=== PATIENT | female | born 1950 | race Two or more races ===

== ENCOUNTER 2018-01-11 09:33 | Emergency (ER) | payer OTHER, MEDICAID ==
[~2018-01-11] VITALS: Ht 152.4 cm; Wt 59.9 kg
[2018-01-11 10:39] LABS: Basophils # (auto) 0 uL; Basophils % (auto) 0.5 % (0.0-2.0); Eosinophils # (auto) 0.8 uL; Hematocrit 42.4 % (36.0-46.0); Hemoglobin 13.9 g/dL (12.2-16.2); Lymphocytes # (auto) 1.6 uL; Lymphocytes % (auto) 20.7 % (10.0-50.0); Mean Corpuscular Hemoglobin 27.1 pg (28.0-32.0); Mean Corpuscular Hgb Conc. 32.7 g/dL (32.0-36.0); Monocytes # (auto) 0.4 uL; Monocytes % (auto) 5.4 % (0.0-12.0); Neutrophils % (auto) 63.4 % (37.0-80.0); Nucleated Red Blood Cells % 0.1 %; Platelet Count (auto) 235 10^3/uL (140-450); Red Blood Cells 5.11 10^6/uL (4.0-5.20); Red Cell Distribution Width 14.7 % (11.8-14.3); White Blood Cell 7.9 10^3/uL (4.4-10.8)
[2018-01-11 11:01] LABS: Albumin 3.1 g/dL (3.4-5.0); BUN/Creatinine Ratio 18.9; Bilirubin, Total 0.6 mg/dL (0.2-1.0); Calcium 8.1 mg/dL (8.5-10.1); Potassium 4.1 mmol/L (3.5-5.1); Total Protein 7.4 g/dL (6.4-8.2)
[2018-01-11 15:39] VITALS: BP 141/69
== END 2018-01-11 15:42 | disposition home or self-care (01) ==
LOC: ER 09:33
DX: D35.2 Benign neoplasm of pituitary gland (principal); R22.0 Localized swelling, mass and lump, head; I10 Essential (primary) hypertension; E07.89 Other specified disorders of thyroid; K21.9 Gastro-esophageal reflux disease without esophagitis; Z90.89 Acquired absence of other organs; Z90.49 Acquired absence of other specified parts of digestive tract; Z90.710 Acquired absence of both cervix and uterus
CPT/HCPCS: 36415; 70450; 70480; 70486; 80053; 82962; 85025

== ENCOUNTER 2025-09-08 09:27 | Inpatient (IN) | payer OTHER, MEDICAID ==
[~2025-09-08] VITALS: Ht 152.4 cm; Wt 62.1 kg
--- NOTE | 2025-09-08 10:16 | ED.PDOC ---
GI ASSESSMENT HPI Comments This is a 75 year old female presenting to the ED with chief complaint of abdominal pain. Patient reports that she has been experiencing RUQ abdominal pain for the past 2 weeks. Patient relays that her PCP had ordered her an endoscopy and colonoscopy, however, it has yet to be scheduled. Patient denies any N/V/D, fever, chills, dysuria, flank pain, chest pain, or SOB. Chief Complaint: Abdominal Pain Time Seen by MD: 10:15 Primary Care Provider: sebastian Alfonso Reviewed Notes: Nurses Notes, Medications, Allergies Allergies: Coded Allergies: NO KNOWN ALLERGIES (Unverified , 01/11/18) Information Source: Patient Mode of Arrival: Ambulatory Timing: Weeks Duration: Since onset Prehospital treatment: None Quality: Aching Vomitus: None Stool: Normal Severity: Moderate Recent: None Recent Hx of: None Pain Location: RUQ Modifying Factors: Nothing Associated sign and symptoms: Abdominal Pain Past Medical History PAST MEDICAL HISTORY: Depression, GERD, HTN, Seizures, Thyroid Surgical History: Appendectomy, Cholecystectomy, Hysterectomy, Thyroidectomy 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 Family History Family History: Reviewed,noncontributory to illness, No family hx of HTN Social History Smoker: Non-Smoker Alcohol: Denies ETOH Use Drugs: Denies Drug Use Lives In: Home Constitutional: denies: chills, diaphoresis, fatigue, fever, malaise, sweats, w eakness, others EENTM: denies: blurred vision, double vision, ear bleeding, ear discharge, ear drainage, ear pain, ear ringing, eye pain, eye redness, hearing loss, mouth pain, mouth swelling, nasal discharge, nose bleeding, nose congestion, nose pain, photophobia, tearing, throat pain, throat swelling, voice changes, others Respiratory: denies: cough, hemoptysis, orthopnea, SOB at rest, shortness of breath, SOB with excertion, stridor, wheezing, others Cardiovascular: denies: chest pain, dizzy spells, diaphoresis, Dyspnea on exertion, edema, irregular heart beat, left arm pain, lightheadedness, palpitations, PND, syncope, others Gastrointestinal: reports: abdominal pain; denies: abdomen distended, blood streaked bowels, constipated, diarrhea, dysphagia, difficulty swallowing, hematemesis, melena, nausea, poor appetite, poor fluid intake, rectal bleeding, rectal pain, vomiting, others Genitourinary: denies: abnormal vagina bleeding, burning, dyspareunia, dysuria, flank pain, frequency, hematuria, incontinence, pain, , vagina discharge, urgency, others Neurological: denies: dizziness, fainting, headache, left sided numbness, left sided weakness, numbness, paresthesia, pre-existing deficit, right sided numbness, right sided weakness, seizure, speech problems, tingling, tremors, weakness, others Musculoskeletal: denies: back pain, gout, joint pain, joint swelling, muscle pain, muscle stiffness, neck pain, others Integumetry: denies: bruises, change in color, change in hair/nails, dryness, laceration, lesions, lumps, rash, wounds, others Allergic/Immunocompromised: denies: Difficulty Healing, Frequent Infections, Hives, Itching, others Hematologic/Lymphatic: denies: anemia, blood clots, easy bleeding, easy bruising, swollen glands, others Endocrine: denies: excessive hunger, excessive sweating, excessive thirst, excessive urination, flushing, intolerance to cold, intolerance to heat, unexplained weight gain, unexplained weight loss, others Psychiatric: denies: anxiety, bipolar disorder, depression, hopeless, panic disorder, schizophrenia, sleepless, suicidal, others All Other Systems: Reviewed and Negative Physical Exam General Appearance: Moderate Distress, Normal HEENT: Normal ENT Inspection, Pharynx Normal, TMs Normal Neck: Full Range of Motion, Non-Tender, Normal, Normal Inspection Respiratory: Chest Non-Tender, Lungs Clear, No Accessory Muscle Use, No Respir atory Distress, Normal Breath Sounds Cardiovascular: No Edema, No JVD, No Murmur, No Gallop, Normal Peripheral Pulses, Regular Rate/Rhythm Breast Exam: Deferred Gastrointestinal: No Organomegaly, Non Tender, No Pulsatile Mass, Normal Bowel Sounds, Soft Genitalia: Deferred Pelvic: Deferred Rectal: Deferred Extremities: No calf tenderness, Normal capillary refill, Normal inspection, Normal range of motion, Non-tender, No pedal edema Musculoskeletal : Apperance: Normal Neurologic: Alert, safety companion II-XII nml as Tested, No Motor Deficits, Normal Affect, Normal Mood, No Sensory Deficits Cerebellar Function: Normal Reflexes: Normal Skin: Dry, Normal Color, Warm Peripheral Pulses: 3+ Radial (R), 3+ Radial (L) Lymphatic: No Adenopathy Was a procedure done? Was a procedure done?: No GI differential Dx Differential Diagnosis: Constipation, Diverticular disease, Esophagitis, Gastritis/PUD, Gastroenteritis X-Ray, Labs, Meds, VS Vital Signs Date Time Temp Pulse Resp B/P (MAP) Pulse Ox O2 Delivery O2 Flow Rate FiO2 09/08/25 09:29 98.5 89 18 159/87 95 98.5 Lab Test 09/08/25 10:29 09/08/25 10:13 Range/Units Urine Color Yellow Yellow Urine Clarity Turbid H Clear Urine pH 5.5 5.0-9.0 Urine Specific [place] 1.027 1.001-1.035 Urine Protein Negative Negative Urine Ketones Negative Negative Urine Blood Negative Negative /uL Urine Nitrite Negative Negative Urine Bilirubin Negative Negative Urine Urobilinogen Normal Negative mg/dL Urine Leukocyte Esterase 1+ Negative /uL Urine RBC <1 0 - 4 /hpf Urine Microscopic WBC 1 0-5 /HPF Urine Squamous Epithelial Cells Few <5 /hpf Urine Calcium Oxalate Crystals Many None Seen Urine Bacteria Few H None Seen /hpf Urine Glucose Normal Normal mg/dL White Blood Count 8.0 4.4-10.8 10^3/uL Red Blood Count 4.90 4.0-5.20 10^6/uL Hemoglobin 14.3 12.2-16.2 g/dL Hematocrit 43.1 36.0-46.0 % Mean Corpuscular Volume 87.9 80.0-100.0 fL Mean Corpuscular Hemoglobin 29.1 28.0-32.0 pg Mean Corpuscular Hemoglobin Concent 33.1 32.0-36.0 g/dL Red Cell Distribution Width 15.3 H 11.8-14.3 % Platelet Count 202 140-450 10^3/uL Mean Platelet Volume 9.1 6.9-10.8 fL Neutrophils (%) (Auto) 64.2 37.0-80.0 % Lymphocytes (%) (Auto) 20.5 10.0-50.0 % Monocytes (%) (Auto) 6.6 0.0-12.0 % Eosinophils (%) (Auto) 8.6 H 0.0-7.0 % Basophils (%) (Auto) 0.1 0.0-2.0 % Neutrophils # (Auto) 5.2 1.6-8.6 10 ^3/uL Lymphocytes # (Auto) 1.6 0.4-5.4 10 ^3/uL Monocytes # (Auto) 0.5 0-1.3 10 ^3/uL Eosinophils # (Auto) 0.7 0-0.8 10 ^3/uL Basophils # (Auto) 0 0-0.2 10 ^3/uL Nucleated Red Blood Cells 0.0 % Sodium Level 146 H 136-145 mmol/L Potassium Level 3.8 3.5-5.1 mmol/L Chloride Level 110 H 98-107 mmol/L Carbon Dioxide Level 27 20-31 mmol/L Anion Gap 9 5-15 Blood Urea Nitrogen 17 9-23 mg/dL Creatinine 0.80 0.550-1.02 mg/dL Glomerular Filtration Rate Calc 76 >90 mL/min BUN/Creatinine Ratio 21.3 H 10.0-20.0 Serum Glucose 89 74-106 mg/dL Calcium Level 9.6 8.7-10.4 mg/dL Patient alert. Came in because of abdominal pain. Sodium is high. Vitals stable. Had gallbladder surgery. WBC within normal limits. UA shows UTI. Was given Rocephin. Continues to have abdominal pain. Explained to the patient. Continue to monitor. Time of 1ST Reevaluation: 11:15 Reevaluation 1ST: Unchanged Patient Education/Counseling: Diagnosis, Treatment Family Education/Counseling: No Family Present SEPSIS Sepsis Screen Date sepsis recognized/suspect: Sep 08, 2025 Time Sepsis recognized/suspect: 928 Recent Procedure: No On Antibiotic Therapy: No Respiratory Rate >20: No Heart Rate >90: No Temp<36 C (96.8 F) or >38.3 C: No SBP <90 or MAP <65 mmHG: No New Acute Mental Status Change: No Is the patient on CPAP, BIPAP,: No Physician Orders Ct Ab Pel Wo Con-No Oral Or Iv (09/08/25 11:00) Vital Signs Date Time Temp Pulse Resp B/P (MAP) Pulse Ox O2 Delivery O2 Flow Rate FiO2 09/08/25 09:29 98.5 89 18 159/87 95 98.5 Laboratory Tests Test 09/08/25 10:13 White Blood Count 8.0 10^3/uL (4.4-10.8) Departure 1 Departure Time of Disposition: 11:39 Impression: Primary Impression: Acute abdominal pain Additional Impressions: Hypernatremia Urinary tract infection Qualified Codes: N30.00 - Acute cystitis without hematuria Disposition: ADMITTED INPATIENT Admit to: Med Surg Condition: Guarded Critical Care Note Critical Care Time?: No Stability Stability form required: No Heart Score Heart Score: Heart Score Response (Comments) Value History N/A 0 EKG N/A 0 Age N/A 0 Risk Factors N/A 0 Troponin N/A 0 Total 0 I personally scribed for LEONOR MENDOZA MD ([email or web address]) on 09/08/25 at 10:16. Electronically submitted by Wilman Torrez ([email or web address]). LEONOR MENDOZA MD Sep 08, 2025 10:16
[2025-09-08 11:13] LABS: Hematocrit 43.1 % (36.0-46.0); Hemoglobin 14.3 g/dL (12.2-16.2); Mean Corpuscular Hemoglobin 29.1 pg (28.0-32.0); Mean Corpuscular Volume 87.9 fL (80.0-100.0); Nucleated Red Blood Cells % 0.0 %
[2025-09-08 11:24] LABS: Chloride 110 mmol/L (98-107); Potassium 3.8 mmol/L (3.5-5.1); Sodium 146 mmol/L (136-145)
[2025-09-08 11:25] LABS: Urine Protein, UAD Negative (Negative)
[2025-09-08 11:25] LABS: Anion Gap 9 (5-15); Calcium 9.6 mg/dL (8.7-10.4); Carbon Dioxide 27 mmol/L (20-31)
[2025-09-08 11:30] LABS: BUN/Creatinine Ratio 21.3 (10.0-20.0); Blood Urea Nitrogen 17 mg/dL (9-23); Glucose 89 mg/dL (74-106)
--- NOTE | 2025-09-08 11:53 | DVH ---
Exam: CT CT AB PEL WO CON-NO ORAL OR IV History: diffusepain Comparison Study: None Technique: Multidetector spiral CT of the abdomen was performed from lung bases to pubic symphysis. I maging was performed without IV contrast. Axial, coronal and sagittal multiplanar reformats were obta ined from the axial data set by the technologist. Radiation Dose : 1. Abdomen/Pelvis: CTDIvol 6.48 mGy, DLP 290.66 mGy*cm. Findings: Evaluation of solid organs is limited due to lack of intravenous contrast use. Lung Bases: No acute or significant lung base finding. Cardiomegaly. No pleural or pericardial effusi on. Liver: The liver is normal in size. No focal lesions. Gallbladder and Biliary Tree: Post cholecystectomy. Spleen: Unremarkable Pancreas: The pancreas is grossly normal in appearance. Adrenal Glands: Unremarkable Kidneys: Kidneys are grossly normal without calculi or hydronephrosis. Bladder: Grossly unremarkable for degree of distention. Bowel: Mild wall thickening of the gastric antrum. Moderate bowel wall thickening of the ascending co raudel. Moderate to large volume diffuse colonic stool. Diverticulosis. The small bowel is normal in yasmine iber and distribution. The appendix is not visualized; however, no secondary findings of acute append icitis identified. Ascites: Absent Lymphadenopathy: No mesenteric, retroperitoneal or periportal lymphadenopathy. Abdominal Wall and Mesentery: Unremarkable. Vasculature: Vascular calcifications of the aorta. Evaluation of abdominal and pelvic vessels is limi diana due to lack of intravenous contrast. Pelvic Organs: Hysterectomy. Musculoskeletal: Multilevel degenerative changes of the spine. No aggressive focal bony lesions, acut e fractures or dislocation. IMPRESSION: Mild wall thickening of the gastric antrum and moderate bowel wall thickening of the ascending colon. Findings may be due to underdistention versus gastritis and colitis respectively. Moderate to large volume diffuse colonic stool. Diverticulosis. Radiation optimization: All CT scans at this facility use at least one of these dose optimization chanell hniques: automated exposure control mA and/or kV adjustment per patient size (includes targeted exam s where dose is matched to clinical indication) or iterative reconstruction.
[2025-09-08 13:20] VITALS: PULSE 56; RESP 19; O2SAT 99
[2025-09-08] MEDS: SODIUM CHLORIDE 0.9% 1,000 ML IV ONE (14:17)
[2025-09-08] MEDS ORDERED: HYDROcodone-ACET 5/325MG TAB PO PRN (14:30)
--- NOTE | 2025-09-08 15:30 | DVHHP2 ---
History of Present Illness Reason for Visit: Abdominal pain History of Present Illness 75-year-old female presents for evaluation of abdominal pain. Patient reports a two week history of intermittent cramping/sharp pain that starts at the Center for abdomen radiates to her right upper quadrant and epigastric region. She reports episodes of nausea. She states over the past two days the pain has become more constant so she presented for further evaluation. No fever or chills. No diarrhea. Past Medical History Hypertension, seizures, thyroid, GERD Past Surgical History Appendectomy, cholecystectomy, hysterectomy, thyroidectomy Family History Noncontributory Smoke: No ALCOHOL: none Drugs: None Lives: with Family Review of Systems Review of Systems Review of systems are currently negative otherwise addressed in HPI. Allergies: Coded Allergies: NO KNOWN ALLERGIES (Unverified , 01/11/18) Medications Current Medications Medications Dose Ordered Sig/Vadim Route Start Time Stop Time Status Last Admin Dose Admin Levothyroxine Sodium 100 mcg QAM@0600 PO 09/09/25 06:00 Losartan Potassium 100 mg DAILY PO 09/09/25 10:00 Topiramate 50 mg BID PO 09/08/25 22:00 Atorvastatin Calcium 40 mg HS PO 09/08/25 22:00 Clopidogrel Bisulfate 75 mg DAILY PO 09/09/25 10:00 Acetaminophen/ Hydrocodone Bitart 1 tab Q4HP PRN PO 09/08/25 14:30 Ondansetron HCl 4 mg Q4HP PRN IV 09/08/25 14:30 Acetaminophen 650 mg Q6HP PRN PO 09/08/25 14:30 Ceftriaxone Sodium 50 ml @ 100 mls/hr DAILY@09 IV 09/09/25 09:00 Exam Vital Signs Vital Signs Date Time Temp Pulse Resp B/P (MAP) Pulse Ox O2 Delivery O2 Flow Rate FiO2 09/08/25 14:05 97.4 60 20 157/78 (104) 95 97.4 09/08/25 13:20 Room Air* 0 21 Exam Gen: 75-year-old female in mild distress. Skin: Warm, dry, normal color and texture, no rash. HEENT: Normocephalic atraumatic, mucous membranes moist and pink. Neck: Cervical and supraclavicular nodes normal without enlargement, trachea is midline, thyroid gland is normal without masses. Pulmonary: Clear to auscultation and percussion bilaterally. Cardiac: Regular rate and rhythm. No murmur Abdomen: Soft, epigastric pain, nondistended, bowel sounds present all 4 quadrants, no guarding, no rigidity, no organomegaly. Extremities: No cyanosis, clubbing, no edema Neuro: Cranial nerves II through XII grossly intact, normal affect and speech, no focal motor deficits. Labs/Xrays ORDERING PHYSICIAN: LEONOR MENDOZA MD PROCEDURE(s): ABPL - CT AB PEL WO CON-NO ORAL OR IV REASON: diffusepain ORDER NUMBER(s): [id number], ACCESSION NUMBER(s): [id number] Exam: CT CT AB PEL WO CON-NO ORAL OR IV History: diffusepain Comparison Study: None Technique: Multidetector spiral CT of the abdomen was performed from lung bases to pubic symphysis. Imaging was performed without IV contrast. Axial, coronal and sagittal multiplanar reformats were obtained from the axial data set by the technologist. Radiation Dose : 1. Abdomen/Pelvis: CTDIvol 6.48 mGy, DLP 290.66 mGy*cm. Findings: Evaluation of solid organs is limited due to lack of intravenous contrast use. Lung Bases: No acute or significant lung base finding. Cardiomegaly. No pleural or pericardial effusion. Liver: The liver is normal in size. No focal lesions. Gallbladder and Biliary Tree: Post cholecystectomy. Spleen: Unremarkable Pancreas: The pancreas is grossly normal in appearance. Adrenal Glands: Unremarkable Kidneys: Kidneys are grossly normal without calculi or hydronephrosis. Bladder: Grossly unremarkable for degree of distention. Bowel: Mild wall thickening of the gastric antrum. Moderate bowel wall thickening of the ascending colon. Moderate to large volume diffuse colonic stool. Diverticulosis. The small bowel is normal in caliber and distribution. The appendix is not visualized; however, no secondary findings of acute appendicitis identified. Ascites: Absent Lymphadenopathy: No mesenteric, retroperitoneal or periportal lymphadenopathy. Abdominal Wall and Mesentery: Unremarkable. Vasculature: Vascular calcifications of the aorta. Evaluation of abdominal and pelvic vessels is limited due to lack of intravenous contrast. Pelvic Organs: Hysterectomy. Musculoskeletal: Multilevel degenerative changes of the spine. No aggressive focal bony lesions, acute fractures or dislocation. IMPRESSION: Mild wall thickening of the gastric antrum and moderate bowel wall thickening of the ascending colon. Findings may be due to underdistention versus gastritis and colitis respectively. Moderate to large volume diffuse colonic stool. Diverticulosis. Radiation optimization: All CT scans at this facility use at least one of these dose optimization techniques: automated exposure control mA and/or kV adjustment per patient size (includes targeted exams where dose is matched to clinical indication) or iterative reconstruction. Labs Test 09/08/25 10:29 09/08/25 10:13 Range/Units Urine Color Yellow Yellow Urine Clarity Turbid H Clear Urine pH 5.5 5.0-9.0 Urine Specific [place] 1.027 1.001-1.035 Urine Protein Negative Negative Urine Ketones Negative Negative Urine Blood Negative Negative /uL Urine Nitrite Negative Negative Urine Bilirubin Negative Negative Urine Urobilinogen Normal Negative mg/dL Urine Leukocyte Esterase 1+ Negative /uL Urine RBC <1 0 - 4 /hpf Urine Microscopic WBC 1 0-5 /HPF Urine Squamous Epithelial Cells Few <5 /hpf Urine Calcium Oxalate Crystals Many None Seen Urine Bacteria Few H None Seen /hpf Urine Glucose Normal Normal mg/dL White Blood Count 8.0 4.4-10.8 10^3/uL Red Blood Count 4.90 4.0-5.20 10^6/uL Hemoglobin 14.3 12.2-16.2 g/dL Hematocrit 43.1 36.0-46.0 % Mean Corpuscular Volume 87.9 80.0-100.0 fL Mean Corpuscular Hemoglobin 29.1 28.0-32.0 pg Mean Corpuscular Hemoglobin Concent 33.1 32.0-36.0 g/dL Red Cell Distribution Width 15.3 H 11.8-14.3 % Platelet Count 202 140-450 10^3/uL Mean Platelet Volume 9.1 6.9-10.8 fL Neutrophils (%) (Auto) 64.2 37.0-80.0 % Lymphocytes (%) (Auto) 20.5 10.0-50.0 % Monocytes (%) (Auto) 6.6 0.0-12.0 % Eosinophils (%) (Auto) 8.6 H 0.0-7.0 % Basophils (%) (Auto) 0.1 0.0-2.0 % Neutrophils # (Auto) 5.2 1.6-8.6 10 ^3/uL Lymphocytes # (Auto) 1.6 0.4-5.4 10 ^3/uL Monocytes # (Auto) 0.5 0-1.3 10 ^3/uL Eosinophils # (Auto) 0.7 0-0.8 10 ^3/uL Basophils # (Auto) 0 0-0.2 10 ^3/uL Nucleated Red Blood Cells 0.0 % Sodium Level 146 H 136-145 mmol/L Potassium Level 3.8 3.5-5.1 mmol/L Chloride Level 110 H 98-107 mmol/L Carbon Dioxide Level 27 20-31 mmol/L Anion Gap 9 5-15 Blood Urea Nitrogen 17 9-23 mg/dL Creatinine 0.80 0.550-1.02 mg/dL Glomerular Filtration Rate Calc 76 >90 mL/min BUN/Creatinine Ratio 21.3 H 10.0-20.0 Serum Glucose 89 74-106 mg/dL Calcium Level 9.6 8.7-10.4 mg/dL Lipase 24 12-53 U/L SEPSIS Sepsis Screen Date sepsis recognized/suspect: Sep 08, 2025 Time Sepsis recognized/suspect: 1320 Recent Procedure: No On Antibiotic Therapy: No Respiratory Rate >20: No Heart Rate >90: No Temp<36 C (96.8 F) or >38.3 C: No SBP <90 or MAP <65 mmHG: No New Acute Mental Status Change: No Is the patient on CPAP, BIPAP,: No Physician Orders Ct Ab Pel Wo Con-No Oral Or Iv (09/08/25 11:00) * Gi Dvh Autoclave Operator (09/08/25 14:17) Levothyroxine Tablet (Synthroid Tablet) (09/09/25 06:00) Losartan Tablet (Cozaar Tablet) (09/09/25 10:00) Topiramate (Topamax) (09/08/25 22:00) Atorvastatin (Lipitor) (09/08/25 22:00) Clopidogrel Bisulfate (Plavix) (09/09/25 10:00) Basic Metabolic Panel (09/09/25 04:00) Admit (09/08/25 14:17) Hydrocodone-Acet 5/325mg Tab ([place] 5/32 (09/08/25 14:30) Ondansetron Hcl (Zofran) (09/08/25 14:30) Complete Blood Count (09/09/25 04:00) Condition: Stable (09/08/25 14:17) Acetaminophen Tablet (Tylenol Tablet) (09/08/25 14:30) Clear Liq Diet (09/08/25 Dinner) Bedrest With Bathroom Privileg (09/08/25 14:17) Ceftriaxone 1gm/50ml (Rocephin) (09/09/25 09:00) Levetiracetam Tablet (Keppra Tablet) (09/08/25 22:00) Vital Signs Date Time Temp Pulse Resp B/P (MAP) Pulse Ox O2 Delivery O2 Flow Rate FiO2 09/08/25 14:05 97.4 60 20 157/78 (104) 95 97.4 09/08/25 13:20 56 19 99 Room Air* 0 21 09/08/25 13:20 97.1 56 19 149/45 (79) 99 97.1 09/08/25 09:29 98.5 89 18 159/87 95 98.5 Laboratory Tests Test 09/08/25 10:13 White Blood Count 8.0 10^3/uL (4.4-10.8) Medications Medications Dose Ordered Sig/Vadim Route Start Time Stop Time Status Last Admin Dose Admin Ceftriaxone Sodium 50 ml @ 100 mls/hr ONCE ONCE IV 09/08/25 11:45 09/08/25 12:14 DC 09/08/25 14:17 100 MLS/HR Sodium Chloride 1,000 ml @ 1,000 mls/hr Q1H ONCE IV 09/08/25 11:45 09/08/25 12:44 DC 09/08/25 14:17 1,000 MLS/HR Assessment/Plan Assessment/Plan Assessment Abdominal pain UTI Hypertension History of seizure Plan Admit the patient to [facility] to the hospitalist GI consult Clear liquid diet Pain management Continue treatment per orders. Plan discussed with: Patient My Orders Orders - ELIANA TA Procedure Category Date Status Time * Gi Dvh Autoclave Operator CONS 09/08/25 Transmitted 14:17 Levothyroxine Tablet PHA 09/09/25 In Process (Synthroid Tablet) 06:00 Losartan Tablet PHA 09/09/25 In Process (Cozaar Tablet) 10:00 Topiramate (Topamax) PHA 09/08/25 In Process 22:00 Atorvastatin (Lipitor) PHA 09/08/25 In Process 22:00 Clopidogrel Bisulfate PHA 09/09/25 In Process (Plavix) 10:00 Basic Metabolic Panel LAB 09/09/25 Verified 04:00 Admit ADMIT 09/08/25 Transmitted 14:17 Hydrocodone-Acet PHA 09/08/25 In Process 5/325mg Tab ([place] 14:30 Ondansetron Hcl PHA 09/08/25 In Process (Zofran) 14:30 Complete Blood Count LAB 09/09/25 Verified 04:00 Condition: Stable JUSTIN 09/08/25 In Process 14:17 Acetaminophen Tablet PHA 09/08/25 In Process (Tylenol Tablet) 14:30 Clear Liq Diet DIET 09/08/25 Transmitted Dinner Bedrest With Bathroom JUSTIN 09/08/25 In Process Privileg 14:17 Ceftriaxone 1gm/50ml PHA 09/09/25 In Process (Rocephin) 09:00 Levetiracetam Tablet PHA 09/08/25 Verified (Keppra Tablet) 22:00 Date of Service: Sep 08, 2025 Billing Provider: ELIANA TA Common Visit Codes: [id number] INP/OBS CARE (MOD) ELIANA TA Sep 08, 2025 15:30
[2025-09-08 16:15] VITALS: BP 158/72; PULSE 55; RESP 16; TEMP 97.5; O2SAT 97
[2025-09-08 17:00] VITALS: BP 159/77; PULSE 59; RESP 18; TEMP 97.3; O2SAT 98
[2025-09-08] MEDS ORDERED: LOSA-535 PO (17:42)
[2025-09-08] MEDS ORDERED: TOPI25CA5 PO (17:42)
[2025-09-08] MEDS ORDERED: KEP500T PO (17:48)
[2025-09-08] MEDS ORDERED: LEVO100T8 PO (17:48)
[2025-09-08] MEDS ORDERED: CYAN-17 PO (17:48)
[2025-09-08] MEDS ORDERED: HYDR25TA4 PO (17:48)
[2025-09-08] MEDS ORDERED: CHOL20007 PO (17:48)
[2025-09-08] MEDS ORDERED: OXYB2.5T PO (17:48)
[2025-09-08] MEDS ORDERED: MONT-8 PO (17:48)
[2025-09-08] MEDS ORDERED: ATOR40TA52 PO (17:48)
[2025-09-08] MEDS ORDERED: SUMA100T15 PO (17:48)
[2025-09-08 20:00] VITALS: PULSE 56; RESP 16; O2SAT 96
[2025-09-08 21:00] VITALS: BP 130/68; PULSE 56; RESP 16; TEMP 97.9; O2SAT 96
[2025-09-08] MEDS: TOPIRAMATE 25 MG TAB PO SCH (21:21)
[2025-09-08] MEDS: ATORVASTATIN 20 MG TAB PO SCH (21:23)
[2025-09-08] MEDS: levETIRAcetam 500 MG TAB PO SCH (21:27)
[2025-09-09] VITALS (8 sets, daily range): BP systolic 112–149; BP diastolic 57–78; PULSE 56–62; RESP 16–17; TEMP 96.9–98.7; O2SAT 95–98
[2025-09-09] MEDS: LEVOTHYROXINE SODIUM 100 MCG TAB PO SCH (05:17)
[2025-09-09 06:04] LABS: Hematocrit 35.8 % (36.0-46.0); Hemoglobin 12.2 g/dL (12.2-16.2); Mean Corpuscular Hemoglobin 29.5 pg (28.0-32.0); Mean Corpuscular Volume 86.6 fL (80.0-100.0); Nucleated Red Blood Cells % 0.1 %; Potassium 3.6 mmol/L (3.5-5.1)
[2025-09-09 06:05] LABS: Anion Gap 9 (5-15); Carbon Dioxide 24 mmol/L (20-31)
[2025-09-09 06:10] LABS: BUN/Creatinine Ratio 16.9 (10.0-20.0); Blood Urea Nitrogen 11 mg/dL (9-23); Glucose 92 mg/dL (74-106)
[2025-09-09 06:13] LABS: Calcium 8.2 mg/dL (8.7-10.4); Chloride 112 mmol/L (98-107); Sodium 145 mmol/L (136-145)
[2025-09-09] MEDS: LOSARTAN POTASSIUM 50 MG TAB PO SCH (10:06)
[2025-09-09] MEDS: CLOPIDOGREL BISULFATE 75 MG TAB PO SCH (10:06)
[2025-09-09] MEDS: ONDANSETRON HCL 4 MG/2 ML VIAL IV PRN (10:21)
--- NOTE | 2025-09-09 16:26 | DVHPN2 ---
Subjective I am assuming the care of the patient from today onwards. Patient is here for abdominal pain found to have suspected colitis and gastritis. Changes from previous H/P or p: No Changes Objective Vitals Vital Signs Date Time Temp Pulse Resp B/P (MAP) Pulse Ox O2 Delivery O2 Flow Rate FiO2 09/09/25 13:00 96.9 58 16 136/66 (89) 97 96.9 09/09/25 07:30 Room Air* 0 21 Intake/Output Intake and Output 09/09/25 07:00 Intake Total 1268 ml Balance 1268 ml Intake Oral 1218 ml IV Total 50 ml # Voids 10 # Bowel Movements 1 Exam HEENT pupils are reactive Neck is supple Respiratory by Dr. Fallon CVS S1-S2 regular rate and m GI positive bowel sounds soft nondistended nontender with no guarding no rigidity. Extremity no edema GRANITE BLOCK PAVER no motor deficit. Medications Current Medications Medications Dose Ordered Sig/Vadim Route Start Time Stop Time Status Last Admin Dose Admin Levothyroxine Sodium 100 mcg QAM@0600 PO 09/09/25 06:00 09/09/25 05:17 100 MCG Losartan Potassium 100 mg DAILY PO 09/09/25 10:00 09/09/25 10:06 100 MG Topiramate 50 mg BID PO 09/08/25 22:00 09/09/25 10:11 50 MG Atorvastatin Calcium 40 mg HS PO 09/08/25 22:00 09/08/25 21:23 40 MG Clopidogrel Bisulfate 75 mg DAILY PO 09/09/25 10:00 09/09/25 10:06 75 MG Acetaminophen/ Hydrocodone Bitart 1 tab Q4HP PRN PO 09/08/25 14:30 Ondansetron HCl 4 mg Q4HP PRN IV 09/08/25 14:30 09/09/25 10:21 4 MG Acetaminophen 650 mg Q6HP PRN PO 09/08/25 14:30 Ceftriaxone Sodium 50 ml @ 100 mls/hr DAILY@09 IV 09/09/25 09:00 09/09/25 10:05 100 MLS/HR Levetiracetam 1,500 mg BID PO 09/08/25 22:00 09/09/25 10:06 1,500 MG Laboratory Results Laboratory Tests 09/09/25 05:23 Chemistry Test 09/09/25 05:23 Calcium Level 8.2 mg/dL (8.7-10.4) L Urinalysis Test 09/08/25 10:29 Urine Color Yellow (Yellow) Urine Clarity Turbid (Clear) H Urine pH 5.5 (5.0-9.0) Urine Specific [place] 1.027 (1.001-1.035) Urine Protein Negative (Negative) Urine Ketones Negative (Negative) Urine Blood Negative /uL (Negative) Urine Nitrite Negative (Negative) Urine Bilirubin Negative (Negative) Urine Urobilinogen Normal mg/dL (Negative) Urine Leukocyte Esterase 1+ /uL (Negative) Urine RBC <1 /hpf (0 - 4) Urine Microscopic WBC 1 /HPF (0-5) Urine Squamous Epithelial Cells Few /hpf (<5) Urine Calcium Oxalate Crystals Many (None Seen) Urine Bacteria Few /hpf (None Seen) H Urine Glucose Normal mg/dL (Normal) Assessment/Plan Assessment/Plan 75-year-old female with a known history of hypertension, hypothyroidism, seizure disorder, GERD presented to the hospital with intermittent abdominal cramping worsening for last few days found to have 1. Acute abdominal pain with underlying gastritis/colitis mentioned 2. Hypotension 3. Hypothyroidism 4. Seizure disorder next 5. GERD 6. Constipation -bowel regimen, discharge plan was pain is resolved. Plan discussed with: Patient Date of Service: Sep 09, 2025 Billing Provider: TIAGO FIGUEROA MD Common Visit Codes: [id number] INP/OBS CARE(HIGH) TIAGO FIGUEROA MD Sep 09, 2025 16:26
--- NOTE | 2025-09-09 17:03 | DVHINCON2 ---
Date of service: Sep 09, 2025 Referring Physician Av Reason for Consultation Abdominal pain History of Present Illness The patient is a 75-year-old female with a history of epigastric and right upper quadrant abdominal pain. Patient states that the symptoms have progressed over the last few weeks. Patient states that she has been having symptoms on and off for more than two years. She was referred for endoscopy and colonoscopy but is yet to see a GI specialist. Patient states that the pain is epigastric and radiates to the right is worse when she eats. She denies any fevers, chills, hematemesis, melena, or hematochezia. GI consultation was obtained for evaluation given the patient's symptoms. Imaging showed increased fecal burden, thickening of the wall of the colon and stomach. Patient is on anticoagulation. Past Medical History GERD Anxiety Hypertension Hypothyroidism History of seizure disorder Past Surgical History Appendectomy Cholecystectomy Hysterectomy Thyroidectomy Family History: Hypertension G8 MOTHER G8 FATHER Family History Denies gastrointestinal diseases or malignancies Allergies: Coded Allergies: NO KNOWN ALLERGIES (Unverified , 01/11/18) Home Meds Reported Medications Levetiracetam (KEPPRA TABLET) 500 Mg Tb, 750 MG PO, TAB 09/08/25 Oxybutynin Chloride (Oxybutynin Chloride) 2.5 Mg Tab, 5 MG PO, TAB 09/08/25 Cholecalciferol (VITAMIN D3) 2,000 Unit Tab, 39392 UNIT PO, TAB 09/08/25 Cyanocobalamin (B12) 1,000 Mcg Cap, 1000 MCG PO, CAP 09/08/25 Hydrochlorothiazide (Hydrochlorothiazide) 25 Mg Tab, 25 MG PO DAILY for 30 Days, MG 09/08/25 Levothyroxine Sodium (Levothyroxine Sodium) 100 Mcg Tab, 100 MCG PO QAM for 30 Days, MCG 09/08/25 Sumatriptan Succinate (Sumatriptan Succinate) 100 Mg Tab, 100 MG PO, MG 09/08/25 Atorvastatin Calcium (ATORVASTATIN CALCIUM) 40 Mg Tab, 40 MG PO DAILY, TAB 09/08/25 Montelukast Sodium (MONTELUKAST SODIUM) 10 Mg Tab, 10 MG PO, TAB 09/08/25 Topiramate (Topiramate) 25 Mg Cap, 25 MG PO for 30 Days, MG 09/08/25 Losartan Potassium (Losartan Potassium) 100 Mg Tab, 100 MG PO DAILY for 30 Days, MG 09/08/25 Current Medications Current Medications Medications (Trade) Dose Ordered Sig/Vadim Route PRN Reason Start Time Stop Time Status Last Admin Levothyroxine Sodium (Synthroid Tablet) 100 mcg QAM@0600 PO 09/09/25 06:00 09/09/25 05:17 Losartan Potassium (Cozaar Tablet) 100 mg DAILY PO 09/09/25 10:00 09/09/25 10:06 Topiramate (Topamax) 50 mg BID PO 09/08/25 22:00 09/09/25 10:11 Atorvastatin Calcium (Lipitor) 40 mg HS PO 09/08/25 22:00 09/08/25 21:23 Clopidogrel Bisulfate (Plavix) 75 mg DAILY PO 09/09/25 10:00 09/09/25 10:06 Ceftriaxone Sodium 50 ml @ 100 mls/hr DAILY@09 IV 09/09/25 09:00 09/09/25 10:05 Levetiracetam (Keppra Tablet) 1,500 mg BID PO 09/08/25 22:00 09/09/25 10:06 Review of Systems Review of systems as per HPI Vital Signs Vital Signs Date Time Temp Pulse Resp B/P (MAP) Pulse Ox O2 Delivery O2 Flow Rate FiO2 09/09/25 13:00 96.9 58 16 136/66 (89) 97 96.9 09/09/25 07:30 Room Air* 0 21 Physical Exam General: Well-developed well-nourished HEENT: NC/AT EOMI PERRLA O/P clear, no JVD or cervical lymphadenopathy, no scleral icterus Heart: Regular rate and rhythm, no murmurs rubs or gallops Lungs: Clear to auscultation bilaterally, no wheezes rales or rhonchi Abdomen: Soft, nontender, nondistended, no organomegaly, normoactive bowel sounds Extremity: No clubbing cyanosis or edema, no rashes or bruises Neuro: Cranial nerves 2-12 grossly intact, moves all four extremities, no asterixis Labs/Diagnostic Data Labs Test 09/09/25 05:23 09/08/25 10:29 09/08/25 10:13 Range/Units White Blood Count 6.4 4.4-10.8 10^3/uL Red Blood Count 4.14 4.0-5.20 10^6/uL Hemoglobin 12.2 12.2-16.2 g/dL Hematocrit 35.8 #L 36.0-46.0 % Mean Corpuscular Volume 86.6 80.0-100.0 fL Mean Corpuscular Hemoglobin 29.5 28.0-32.0 pg Mean Corpuscular Hemoglobin Concent 34.0 32.0-36.0 g/dL Red Cell Distribution Width 15.1 H 11.8-14.3 % Platelet Count 169 140-450 10^3/uL Mean Platelet Volume 9.0 6.9-10.8 fL Neutrophils (%) (Auto) 54.7 37.0-80.0 % Lymphocytes (%) (Auto) 26.4 10.0-50.0 % Monocytes (%) (Auto) 7.4 0.0-12.0 % Eosinophils (%) (Auto) 11.3 H 0.0-7.0 % Basophils (%) (Auto) 0.2 0.0-2.0 % Neutrophils # (Auto) 3.5 1.6-8.6 10 ^3/uL Lymphocytes # (Auto) 1.7 0.4-5.4 10 ^3/uL Monocytes # (Auto) 0.5 0-1.3 10 ^3/uL Eosinophils # (Auto) 0.7 0-0.8 10 ^3/uL Basophils # (Auto) 0 0-0.2 10 ^3/uL Nucleated Red Blood Cells 0.1 % Sodium Level 145 136-145 mmol/L Potassium Level 3.6 3.5-5.1 mmol/L Chloride Level 112 H 98-107 mmol/L Carbon Dioxide Level 24 20-31 mmol/L Anion Gap 9 5-15 Blood Urea Nitrogen 11 9-23 mg/dL Creatinine 0.65 0.550-1.02 mg/dL Glomerular Filtration Rate Calc 91 >90 mL/min BUN/Creatinine Ratio 16.9 10.0-20.0 Serum Glucose 92 74-106 mg/dL Calcium Level 8.2 L 8.7-10.4 mg/dL Urine Color Yellow Yellow Urine Clarity Turbid H Clear Urine pH 5.5 5.0-9.0 Urine Specific [place] 1.027 1.001-1.035 Urine Protein Negative Negative Urine Ketones Negative Negative Urine Blood Negative Negative /uL Urine Nitrite Negative Negative Urine Bilirubin Negative Negative Urine Urobilinogen Normal Negative mg/dL Urine Leukocyte Esterase 1+ Negative /uL Urine RBC <1 0 - 4 /hpf Urine Microscopic WBC 1 0-5 /HPF Urine Squamous Epithelial Cells Few <5 /hpf Urine Calcium Oxalate Crystals Many None Seen Urine Bacteria Few H None Seen /hpf Urine Glucose Normal Normal mg/dL Lipase 24 12-53 U/L Assessment 1. Abdominal pain 2. History of GERD 3. History of anticoagulant use 4. History of seizure disorder Problems(with codes): (1) Urinary tract infection (2) Acute abdominal pain (3) Hypernatremia Plan/Recommendation 1. Diet as tolerated 2. NPO after midnight 3. We will obtain consent for EGD for EGD tomorrow 4. Consider outpatient colonoscopy 5. Further recommendations to follow up after EGD 6.. Protonix daily Plan discussed with: Patient TAWNYA ATKINS MD Sep 09, 2025 17:03
[2025-09-09 19:21] LABS: Hematocrit 38.9 % (36.0-46.0); Hemoglobin 13.1 g/dL (12.2-16.2); Mean Corpuscular Hemoglobin 29.2 pg (28.0-32.0); Mean Corpuscular Volume 86.8 fL (80.0-100.0); Nucleated Red Blood Cells % 0.0 %
--- NOTE | 2025-09-09 19:33 | DVH ---
CHEST RADIOGRAPH Indication: surgery Technique: Single frontal view of the chest was obtained Comparison: None FINDINGS: Lines and Tubes: None Lungs: No focal consolidation. Pleura: No effusion. No pneumothorax. Cardiomediastinal contours: Cardiac size upper limits of normal Bones: No acute osseous abnormality. IMPRESSION: 1. No acute cardiopulmonary disease.
[2025-09-09 19:36] LABS: INR 1.02 (0.9-1.15); Prothrombin Time 10.8 sec (9.3-11.8)
[2025-09-09 19:42] LABS: Alanine Aminotransferase 39 U/L (7-40); Albumin 3.8 g/dL (3.2-4.8); Alkaline Phosphatase 93 U/L (46-116); Anion Gap 9 (5-15); BUN/Creatinine Ratio 9.2 (10.0-20.0); Carbon Dioxide 23 mmol/L (20-31); Glucose 87 mg/dL (74-106); Potassium 3.6 mmol/L (3.5-5.1); Total Protein 6.9 g/dL (5.7-8.2)
[2025-09-09 19:43] LABS: Bilirubin, Total 0.9 mg/dL (0.2-1.0)
[2025-09-09 19:44] LABS: Blood Urea Nitrogen 7 mg/dL (9-23); Calcium 8.2 mg/dL (8.7-10.4); Chloride 114 mmol/L (98-107); Sodium 146 mmol/L (136-145)
[2025-09-09] MEDS: PANTOPRAZOLE 40 MG/10 ML VIAL INJ IV SCH (23:00)
[2025-09-10] VITALS (11 sets, daily range): BP systolic 108–134; BP diastolic 47–69; PULSE 52–58; RESP 12–17; TEMP 97.5–98.2; O2SAT 94–98
[2025-09-10] MEDS: ACETAMINOPHEN 325 MG TAB PO PRN (11:47)
[2025-09-10] MEDS: fentaNYL CITRATE 100 MCG/2 ML VL ONE (14:25)
[2025-09-10] MEDS: MIDAZOLAM HCL 5 MG/ML-1ML VIAL ONE (14:25)
--- NOTE | 2025-09-10 14:35 | DVHNC2 ---
Procedure - PROCEDURE DATE: 09/10/2025 PROCEDURE PERFORMED BY: Tawnya Wiggins MD REFERRING PROVIDER: Dr Av ACOSTA PROCEDURE PERFORMED: 1. ESOPHAGOGASTRODUODENOSCOPY WITH MODERATE SEDATION 2. ESOPHAGOGASTRODUODENOSCOPY WITH BIOPSY PRE-PROCEDURE DIAGNOSIS: 1. ABDOMINAL PAIN POSTPROCEDURE DIAGNOSIS: 1. MILD EROSIVE ESOPHAGITIS 2. MILD EROSIVE GASTRITIS INDICATIONS FOR PROCEDURE: The patient is a pleasant 75-year-old female who was to be seen as an outpatient for abdominal pain however the abdominal pain persisted and patient was admitted to the hospital. EGD is warranted for evaluation. MEDICATIONS USED: 3 mg of Versed IV and 50 mcg of fentanyl IV DETAILS OF THE PROCEDURE: Informed consent was obtained after risks benefits and alternatives were discussed at length with the patient. The patient gave consent to the procedure as well as the medication used for sedation. The patient was placed in left lateral decubitus position. Olympus endoscope was inserted into the oropharynx advanced into the esophagus then into the stomach then into the duodenal bulb and duodenum. The duodenal bulb and duodenum were normal. Biopsies were taken given the patient's symptoms. The scope was then withdrawn. There was mild gastritis seen. There was no ulcers, masses, strictures or other abnormality seen. Biopsies were taken for H pylori. Retroflexion showed no abnormalities. The scope was then withdrawn. The Z-line was at 35 cm. The patient had mild erosive esophagitis. The patient tolerated the procedure well. IMPRESSION: 1. Mild erosive esophagitis,and mild erosive gastritis. Findings out of proportion to patient's symptoms. RECOMMENDATIONS: 1. Anti-reflux precautions 2. Proton pump inhibitor daily 30 minutes before breakfast 3. Avoid aspirin NSAIDs and anticoagulants 4. Caution with spicy food, greasy food, alcohol, citrus 5. Consider outpatient colonoscopy 6. Consider musculoskeletal, biliary, pancreatic causes versus gastroparesis. 7. Diet as tolerated 8. I will follow I WOULD LIKE TO THANK DR. TA FOR THIS REFERRAL TAWNYA WIGGINS MD Sep 10, 2025 14:35
[2025-09-10] MEDS ORDERED: PANT40TA2 PO (16:34)
[2025-09-10] MEDS ORDERED: CEPH500C PO (16:34)
--- NOTE | 2025-09-10 16:38 | DVHDS2 ---
Discharge Summary Date of Admission Sep 08, 2025 at 14:17 Date of Discharge: Sep 10, 2025 Labs/Diagnostic Data: Laboratory Results Test 09/09/25 18:44 09/08/25 10:29 09/08/25 10:13 White Blood Count 5.4 10^3/uL (4.4-10.8) Red Blood Count 4.48 10^6/uL (4.0-5.20) Hemoglobin 13.1 g/dL (12.2-16.2) Hematocrit 38.9 % (36.0-46.0) Mean Corpuscular Volume 86.8 fL (80.0-100.0) Mean Corpuscular Hemoglobin 29.2 pg (28.0-32.0) Mean Corpuscular Hemoglobin Concent 33.6 g/dL (32.0-36.0) Red Cell Distribution Width 14.9 % (11.8-14.3) Platelet Count 190 10^3/uL (140-450) Mean Platelet Volume 8.9 fL (6.9-10.8) Neutrophils (%) (Auto) 56.1 % (37.0-80.0) Lymphocytes (%) (Auto) 27.1 % (10.0-50.0) Monocytes (%) (Auto) 7.6 % (0.0-12.0) Eosinophils (%) (Auto) 9.1 % (0.0-7.0) Basophils (%) (Auto) 0.1 % (0.0-2.0) Neutrophils # (Auto) 3.1 10 ^3/uL (1.6-8.6) Lymphocytes # (Auto) 1.5 10 ^3/uL (0.4-5.4) Monocytes # (Auto) 0.4 10 ^3/uL (0-1.3) Eosinophils # (Auto) 0.5 10 ^3/uL (0-0.8) Basophils # (Auto) 0 10 ^3/uL (0-0.2) Nucleated Red Blood Cells 0.0 % Prothrombin Time 10.8 sec (9.3-11.8) Prothrombin Time INR 1.02 (0.9-1.15) Sodium Level 146 mmol/L (136-145) Potassium Level 3.6 mmol/L (3.5-5.1) Chloride Level 114 mmol/L (98-107) Carbon Dioxide Level 23 mmol/L (20-31) Anion Gap 9 (5-15) Blood Urea Nitrogen 7 mg/dL (9-23) Creatinine 0.76 mg/dL (0.550-1.02) Glomerular Filtration Rate Calc 81 mL/min (>90) BUN/Creatinine Ratio 9.2 (10.0-20.0) Serum Glucose 87 mg/dL (74-106) Calcium Level 8.2 mg/dL (8.7-10.4) Total Bilirubin 0.9 mg/dL (0.2-1.0) Aspartate Amino Transferase (AST) 33 U/L (13-40) Alanine Aminotransferase (ALT) 39 U/L (7-40) Alkaline Phosphatase 93 U/L (46-116) Total Protein 6.9 g/dL (5.7-8.2) Albumin 3.8 g/dL (3.2-4.8) Urine Color Yellow (Yellow) Urine Clarity Turbid (Clear) Urine pH 5.5 (5.0-9.0) Urine Specific [place] 1.027 (1.001-1.035) Urine Protein Negative (Negative) Urine Ketones Negative (Negative) Urine Blood Negative /uL (Negative) Urine Nitrite Negative (Negative) Urine Bilirubin Negative (Negative) Urine Urobilinogen Normal mg/dL (Negative) Urine Leukocyte Esterase 1+ /uL (Negative) Urine RBC <1 /hpf (0 - 4) Urine Microscopic WBC 1 /HPF (0-5) Urine Squamous Epithelial Cells Few /hpf (<5) Urine Calcium Oxalate Crystals Many (None Seen) Urine Bacteria Few /hpf (None Seen) Urine Glucose Normal mg/dL (Normal) Lipase 24 U/L (12-53) Other Laboratory Tests 09/09/25 18:44 Brief Hx & Hospital Course: 75-year-old female with a known history of hypertension, hypothyroidism, seizure disorder, GERD presented to the hospital with intermittent abdominal cramping worsening for last few days found to have abdominal pain with a possible gastritis and colitis. CT abdomen and pelvis was done which shows distention of gastric wall could be gastritis as well as ascending colon underdistention. Patient was seen by GI scheduled for EGD patient underwent EGD which shows evidence of erosive esophagitis and erosive gastritis. Protonix was recommended. Patient also has a UTI patient was treated with the IV antibiotics which will be switched to p.o. antibiotics. Patient is requesting to go home I think patient is stable to be discharged with a close follow up as an outpatient with the PCP as well as GI for outpatient colonoscopy. Condition at Discharge: Stable Final Diagnosis/Problems List 75-year-old female with a known history of hypertension, hypothyroidism, seizure disorder, GERD presented to the hospital with intermittent abdominal cramping worsening for last few days found to have 1. Acute abdominal pain with underlying gastritis/colitis status post EGD showed erosive esophagitis and erosive gastritis. 2. Hypotension, resolved 3. Hypothyroidism 4. Seizure disorder 5. GERD Discharge Disposition: Home SNF Discharge Will this Physician continue t: No Discharge Instruct/Medications Diet: Cardiac 2g Na,low cholest Activity: No Restrictions, As Tolerated Follow Up/Referral: Follow up with the PCP in one week Follow up with GI in two weeks for outpatient colonoscopy Medications: Keflex and Protonix as prescribed. New Medications: Cephalexin Monohydrate (Cephalexin) 500 Mg Cap 1 CAP PO TID for 3 Days, #9 CAP Pantoprazole Sodium Sesquihydr (Protonix) 40 Mg Tab 40 MG PO QAM, #30 TAB Continued Medications: Atorvastatin Calcium (Atorvastatin Calcium) 40 Mg Tab 40 MG PO DAILY, TAB Cholecalciferol (Vitamin D3) 2,000 Unit Tab 04954 UNIT PO, TAB Cyanocobalamin (B12) 1,000 Mcg Cap 1000 MCG PO, CAP Hydrochlorothiazide (Hydrochlorothiazide) 25 Mg Tab 25 MG PO DAILY for 30 Days, MG Levetiracetam (Keppra Tablet) 500 Mg Tb 750 MG PO, TAB Levothyroxine Sodium (Levothyroxine Sodium) 100 Mcg Tab 100 MCG PO QAM for 30 Days, MCG Losartan Potassium (Losartan Potassium) 100 Mg Tab 100 MG PO DAILY for 30 Days, MG Montelukast Sodium (Montelukast Sodium) 10 Mg Tab 10 MG PO, TAB Oxybutynin Chloride (Oxybutynin Chloride) 2.5 Mg Tab 5 MG PO, TAB Sumatriptan Succinate (Sumatriptan Succinate) 100 Mg Tab 100 MG PO, MG Topiramate (Topiramate) 25 Mg Cap 25 MG PO for 30 Days, MG Scheduled Atorvastatin Calcium (Atorvastatin Calcium), 40 MG PO DAILY, (Reported) Cephalexin Monohydrate (Cephalexin), 1 CAP PO TID Hydrochlorothiazide (Hydrochlorothiazide), 25 MG PO DAILY, (Reported) Levothyroxine Sodium (Levothyroxine Sodium), 100 MCG PO QAM, (Reported) Losartan Potassium (Losartan Potassium), 100 MG PO DAILY, (Reported) Pantoprazole Sodium Sesquihydr (Protonix), 40 MG PO QAM Miscellaneous Medications Cholecalciferol (Vitamin D3), 50,000 UNIT PO, (Reported) Cyanocobalamin (B12), 1,000 MCG PO, (Reported) Levetiracetam (Keppra Tablet), 750 MG PO, (Reported) Montelukast Sodium (Montelukast Sodium), 10 MG PO, (Reported) Oxybutynin Chloride (Oxybutynin Chloride), 5 MG PO, (Reported) Sumatriptan Succinate (Sumatriptan Succinate), 100 MG PO, (Reported) Topiramate (Topiramate), 25 MG PO, (Reported) Discharge Statement: "Patient was advised to return to the ER or call 911 if any headaches, dizziness, shortness of breath, chest pain, abdominal pain, bleeding, fevers, or worsening of medical condition. Patient was counseled about treatment plan, medications, possible side effects, patientverbalized understanding. All questions were answered to the best of my ability. This discharge took greater then 30 minutes in planning, reviewing documentation, counseling the patient, and discussing with other team members." ASSESSMENT ASSESSMENT Assessment 75-year-old female with a known history of hypertension, hypothyroidism, seizure disorder, GERD presented to the hospital with intermittent abdominal cramping worsening for last few days found to have 1. Acute abdominal pain with underlying gastritis/colitis status post EGD showed erosive esophagitis and erosive gastritis. 2. Hypotension, resolved 3. Hypothyroidism 4. Seizure disorder 5. GERD Date of Service: Sep 10, 2025 Billing Provider: TIAGO FIGUEROA MD Common Visit Codes: 67679-CJP/OBS DISCH DAY >30min TIAGO FIGUEROA MD Sep 10, 2025 16:38
[2025-09-11 01:00] VITALS: BP 128/68; PULSE 54; RESP 18; TEMP 98.7; O2SAT 95
[2025-09-11 05:00] VITALS: BP 143/67; PULSE 56; RESP 17; TEMP 98.2; O2SAT 95
[2025-09-11 07:30] VITALS: PULSE 55; RESP 18; O2SAT 97
[2025-09-11 09:00] VITALS: BP 133/64; PULSE 54; RESP 16; TEMP 97.7; O2SAT 98
[2025-09-11 12:37] VITALS: BP 147/72; PULSE 64; RESP 18; TEMP 98.8; O2SAT 97
--- NOTE | 2025-09-11 15:01 | DVHPN2 ---
Subjective Patient was not picked up yesterday because of social issues. Changes from previous H/P or p: No Changes Objective Vitals Vital Signs Date Time Temp Pulse Resp B/P (MAP) Pulse Ox O2 Delivery O2 Flow Rate FiO2 09/11/25 12:37 98.8 64 18 147/72 (97) 97 98.8 09/11/25 07:30 Room Air* 0 21 Intake/Output Intake and Output 09/11/25 07:00 Intake Total 650 ml Balance 650 ml Intake Oral 600 ml IV Total 50 ml # Voids 12 # Bowel Movements 1 Exam HEENT pupils are reactive Neck is supple Respiratory by Dr. Fallon CVS S1-S2 regular rate and m GI positive bowel sounds soft nondistended nontender with no guarding no rigidity. Extremity no edema [employer] no motor deficit. Laboratory Results Laboratory Tests 09/09/25 18:44 Urinalysis Test 09/08/25 10:29 Urine Color Yellow (Yellow) Urine Clarity Turbid (Clear) H Urine pH 5.5 (5.0-9.0) Urine Specific [place] 1.027 (1.001-1.035) Urine Protein Negative (Negative) Urine Ketones Negative (Negative) Urine Blood Negative /uL (Negative) Urine Nitrite Negative (Negative) Urine Bilirubin Negative (Negative) Urine Urobilinogen Normal mg/dL (Negative) Urine Leukocyte Esterase 1+ /uL (Negative) Urine RBC <1 /hpf (0 - 4) Urine Microscopic WBC 1 /HPF (0-5) Urine Squamous Epithelial Cells Few /hpf (<5) Urine Calcium Oxalate Crystals Many (None Seen) Urine Bacteria Few /hpf (None Seen) H Urine Glucose Normal mg/dL (Normal) Assessment/Plan Assessment/Plan 75-year-old female with a known history of hypertension, hypothyroidism, seizure disorder, GERD presented to the hospital with intermittent abdominal cramping worsening for last few days found to have 1. Acute abdominal pain with underlying gastritis/colitis status post EGD showed erosive gastritis and esophagitis 2. Hypotension, resolved 3. Hypothyroidism 4. Seizure disorder next 5. GERD 6. Constipation -bowel regimen, continue Protonix, discharge today. Plan discussed with: Other My Orders Orders - TIAGO FIGUEROA MD Procedure Category Date Status Time Discharge DISCHARGE 09/10/25 Transmitted 16:34 Date of Service: Sep 11, 2025 Billing Provider: TIAGO FIGUEROA MD Common Visit Codes: [id number] INP/OBS CARE(MOD) TIAGO FIGUEROA MD Sep 11, 2025 15:01
== END 2025-09-11 13:30 | disposition home or self-care (01) | DRG 392 ==
LOC: ER 09:27 → OVERFLOW 14:17 → EAST 16:12
PROVIDERS: ADMIT Internal Medicine; ATTEND Internal Medicine
PROC: 0DB68ZX Excision of Stomach, Via Natural or Artificial Opening Endoscopic, Diagnostic (ICD-10-PCS; 2025-09-10)
PROC: 0DB98ZX Excision of Duodenum, Via Natural or Artificial Opening Endoscopic, Diagnostic (ICD-10-PCS; principal; 2025-09-10 14:22)
DX: K29.60 Other gastritis without bleeding (principal); N39.0 Urinary tract infection, site not specified; E87.0 Hyperosmolality and hypernatremia; K52.9 Noninfective gastroenteritis and colitis, unspecified; K21.00 Gastro-esophageal reflux disease with esophagitis, without bleeding; I10 Essential (primary) hypertension; E89.0 Postprocedural hypothyroidism; G40.909 Epilepsy, unspecified, not intractable, without status epilepticus; K59.00 Constipation, unspecified; F32.A Depression, unspecified; F41.9 Anxiety disorder, unspecified; I95.9 Hypotension, unspecified; Z79.899 Other long term (current) drug therapy; Z90.710 Acquired absence of both cervix and uterus; Z90.49 Acquired absence of other specified parts of digestive tract; Z79.01 Long term (current) use of anticoagulants; Z82.49 Family history of ischemic heart disease and other diseases of the circulatory system
CPT/HCPCS: 36415; 43239; 71045; 74176; 80048; 80053; 81001; 83690; 85025; 85610; 86850; 86900; 86901; 96374; G0378; J2250; J2405; J2470